=== PATIENT | male | born 1980 | race African-American/Black ===

== ENCOUNTER 2021-02-11 17:49 | Emergency (ER) | payer OTHER | END 2021-02-11 21:22 | disposition home or self-care (01) | LOC: ER 17:49 | DX: M79.672 Pain in left foot (principal); M79.671 Pain in right foot; F12.90 Cannabis use, unspecified, uncomplicated; F16.10 Hallucinogen abuse, uncomplicated; F17.210 Nicotine dependence, cigarettes, uncomplicated ==